=== PATIENT | female | born 1990 | race African-American/Black ===

== ENCOUNTER 2017-12-31 18:29 | Emergency (ER) | payer MEDICAID, OTHER ==
[~2017-12-31] VITALS: Ht 154.9 cm; Wt 48.1 kg
[~2017-12-31 18:29] MED LIST: ACETAMINOPHEN-1 EAC1 ORAL; AUGMENTIN 500M500 MG PO; CLARITIN5 MG ORAL; IBUPROFEN600 MG ORAL; IBUPROFEN600 MG PO; NKM; PROAIR HFA8.5 GM INH; ROBITUSSIN COU118 M4 PO
--- NOTE | 2017-12-31 18:51 | Emergency Room Report ---
History of Present Illness General Chief Complaint: Animal Bite Source: Patient, Medical Record Present Illness HPI 27-year-old female patient presents ER complaining of dog bite on left arm that occurred less than an hour ago. Patient reports that she was at [employer] getting her car when the dog that is the "property of the auto shop" bit her on her left arm. patient reports that process owner said the dog had all his shots "years ago". Reports she is right-hand dominant. Denies radiation of pain symptoms. reports puncture wound on top of left arm with mild bleeding, states bleeding well controlled with gauze. patient states Does not know tetanus vaccination status. Denies fever, chest pain, shortness of breath. Denies loss of range of motion of the arm. Denies foreign body sensation. Allergies: Coded Allergies: No Known Allergies (Unverified , 12/02/11) Patient History Past Medical History: see triage record Last Menstrual Period: 12/26/17 Reviewed Nursing Documentation: PMH: Agreed; PSxH: Agreed Nursing Documentation-PMH Past Medical History: No History, Except For Hx Asthma: Yes Review of Systems All Other Systems: negative except mentioned in HPI Physical Exam Vital Signs Date Time Temp Pulse Resp B/P (MAP) Pulse Ox O2 Delivery O2 Flow Rate FiO2 12/31/17 18:32 97.7 81 18 124/79 100 Room Air Sp02 EP Interpretation: reviewed, normal General Appearance: well appearing, no apparent distress, alert, GCS 15, non- toxic Head: normocephalic, atraumatic Eyes: bilateral eye normal inspection, bilateral eye PERRL ENT: hearing grossly normal, normal pharynx, no angioedema, normal voice, uvula midline, moist mucus membranes Neck: full range of motion Respiratory: lungs clear, normal breath sounds, no rhonchi, no respiratory distress, no accessory muscle use, no wheezing, speaking full sentences Cardiovascular #1: regular rate, rhythm, no edema Cardiovascular #2: 2+ radial (R), 2+ radial (L) Musculoskeletal: back normal, digits/nails normal, gait/station normal, normal range of motion, non-tender, other - NVI, cap refill <2seconds, no deformity Neurologic: alert, oriented x3, responsive, motor strength/tone normal, sensory intact Psychiatric: mood/affect normal Skin: other - left forearm: small bite with open wound, no active bleeding or drainage, no surrounding erythema or edema, no red streaking Medical Decision Making PA Attestation Dr. Mcgill is my supervising Physician whom patient management has been discussed with. Diagnostic Impression: Primary Impression: Bite by animal ER Course Pt presents to ED c/o dog bite. DDX considered but are not limited to animal bite, abrasion, cellulitis, contusion, fracture. VITALS Patient is afebrile ED COURSE: patient with pain medication. Full ROM of arm, no FB sensation, low suspicion for fracture or retained foreign body, does not require xray of arm at this time. Superficial wounds on right forearm, no active bleeding or draining. Wound clean with copious amount of saline and dressed in sterile dressing. TDap provided to patient. Rx provided for Augmentin. Patient instructed to follow up with PCP for wound check in 2-3 days and complete full course of antibiotics. ER precautions given. DISCHARGE: Rx provided for Augmentin Rx provided for Tylenol Apply topical Neosporin as needed. Available [id number]. At this time pt is stable for d/c to home. Patient resting comfortably no acute distress, nontoxic appearing, okay for outpatient treatment and follow-up. Will provide with patient care instructions and any necessary prescriptions. Patient to take medication as instructed. Care plan and follow-up instructions provided. Patient questions asked and answered. Followup with PCP or return to ER in 2-3 days for wound check. ER precautions given. Patient instructed to return to ER immediately for any new or worsening of symptoms. - Please note that this Emergency Department Report was dictated using [employer] harbormaster technology software, occasionally this can lead to erroneous entry secondary to interpretation by the dictation equipment. Last Vital Signs Date Time Temp Pulse Resp B/P (MAP) Pulse Ox O2 Delivery O2 Flow Rate FiO2 12/31/17 18:32 97.7 81 18 124/79 100 Room Air Status: improved Disposition: HOME, SELF-CARE Condition: Stable Scripts Acetaminophen* (TYLENOL EXTRA STRENGTH*) 500 Mg Tablet 500 MG ORAL Q8H PRN for Prn Headache/Temp > 101, #30 TAB 0 Refills Prov: Carl Grey P.Isabell 12/31/17 Amoxicillin/Potassium Clav 875-125* (AUGMENTIN 875-125 TABLET*) 1 Each Tablet 1 TAB ORAL TWICE A DAY for 7 Days, #14 TAB Prov: Carl Grey 12/31/17 Patient Instructions: Animal Bite Additional Instructions: Followup with primary care provider in 3 -5 days. Keep clean and dry. Apply cool compresses to effected area. Take medications as directed. Patient questions asked and answered. ER precautions given, patient instructed to return to ER immediately for any new or worsening of symptoms. Carl Grey Dec 31, 2017 18:51
[2017-12-31] MEDS ORDERED: Bacitracin Oint UD TOPIC ONE (19:00)
[2017-12-31] MEDS ORDERED: Acetaminophen 500mg (ES) tab ORAL ONE (19:00)
[2017-12-31] MEDS ORDERED: Tetanus/Diptheria/Pertussis Vaccine 0.5ml Syr IM ONE (19:00)
[2017-12-31] MEDS ORDERED: AUGMENTIN 875-1 EAC1 ORAL (19:09)
[2017-12-31] MEDS ORDERED: TYLENOL EXTRA500 MG ORAL (19:09)
[2018-01-01 00:17] VITALS: BP 124/79
== END 2018-01-01 00:19 | disposition home or self-care (01) ==
LOC: EMR 19:04
DX: S51.852A Open bite of left forearm, initial encounter (principal); W54.0XXA Bitten by dog, initial encounter; Y92.513 Shop (commercial) as the place of occurrence of the external cause; Z23 Encounter for immunization; J45.909 Unspecified asthma, uncomplicated
CPT/HCPCS: 90471; 90715; 99283

== ENCOUNTER 2019-04-23 20:07 | Emergency (ER) | payer MEDICAID ==
[~2019-04-23] VITALS: Ht 154.9 cm; Wt 46.7 kg
[~2019-04-23 20:07] MED LIST changes: +AUGMENTIN 875-1 EAC1 ORAL; +TYLENOL EXTRA500 MG ORAL
[2019-04-23 20:28] VITALS: BP 139/84
--- NOTE | 2019-04-23 20:29 | NUR ---
ER Nurse Note: Pt walked in c/o body aches, coughs, fever and chills for a few days. Pt stated she has been near family members who are sick. Pt stated nasal congestion with mucus. Pt denies chest pain; has slight shortness of breath due to congestion. ER PA at pt side. Will continue to [facility].
--- NOTE | 2019-04-23 20:38 | Emergency Room Report ---
History of Present Illness General Chief Complaint: Upper Respiratory Illness Source: Patient Present Illness HPI 28-year-old female presents to the emergency department complaining of persistent mucus-like cough, 6/10 body aches, subjective fevers/chills and fatigue x5 days. Patient with history of asthma in addition to being a current daily smoker. She denies recent travel. She reports her sister came from [place] who had similar symptoms first. She denies taking any medications today. Denies sore throat, ear pain, high fevers, neck pain/stiffness, irritability, photophobia dehydration, N/V/D. Denies Cp, Palpitations, LOC, AMS, seizures, paresthesias, or changes in Hearing or vision, no Sudden severe LYMAN. She did not receive this years flu vaccination. Allergies: Coded Allergies: No Known Allergies (Unverified , 12/02/11) Patient History Past Medical History: see triage record Past Surgical History: none Pertinent Family History: none Last Menstrual Period: 04/23/19 Now: No Reviewed Nursing Documentation: PMH: Agreed; PSxH: Agreed Nursing Documentation-PMH Past Medical History: No History, Except For Hx Asthma: Yes Review of Systems All Other Systems: negative except mentioned in HPI Physical Exam Vital Signs Date Time Temp Pulse Resp B/P (MAP) Pulse Ox O2 Delivery O2 Flow Rate FiO2 04/23/19 20:20 98.2 62 14 139/84 (102) 100 Room Air Sp02 EP Interpretation: reviewed, normal General Appearance: no apparent distress, alert, GCS 15, non-toxic Head: normocephalic, atraumatic Eyes: bilateral eye normal inspection, bilateral eye PERRL ENT: hearing grossly normal, normal pharynx, normal voice, TMs + canals normal , uvula midline Neck: full range of motion, no meningismus, no bony tend Respiratory: chest non-tender, lungs clear, normal breath sounds, no rhonchi, no respiratory distress, speaking full sentences Cardiovascular #1: regular rate, rhythm, no edema Gastrointestinal: non tender, soft Musculoskeletal: normal range of motion, gait/station normal, non-tender Neurologic: alert, motor strength/tone normal, oriented x3, sensory intact, responsive, speech normal Psychiatric: judgement/insight normal Skin: no rash, normal color, normal inspection Lymphatic: no adenopathy Medical Decision Making PA Attestation Dr. Joe Is my supervising Physician whom patient management has been discussed with. Diagnostic Impression: Primary Impression: Bronchitis Additional Impression: Upper respiratory infection, viral ER Course 28-year-old female presents to the emergency department complaining of persistent mucus-like cough, 6/10 body aches, subjective fevers/chills and fatigue x5 days. Patient with history of asthma in addition to being a current daily smoker. She denies recent travel. She reports her sister came from [place] who had similar symptoms first. She denies taking any medications today. Denies sore throat, ear pain, high fevers, neck pain/stiffness, irritability, photophobia dehydration, N/V/D. Denies Cp, Palpitations, LOC, AMS, seizures, paresthesias, or changes in Hearing or vision, no Sudden severe LYMAN. She did not receive this years flu vaccination. Ddx considered but are not limited to URI, pneumonia, PE, strep pharyngitis, meningitis, bronchitis, asthma exacerbation, PND just to name a few.. Vital signs: Pt.is afebrile VS are WNL H&PE are most consistent with bronchitis most likely viral in etiology. ORDERS: none required at this time, the diagnosis is clinical ED INTERVENTIONS: None required at this time. -I do not identify an emergent condition at this time. With current presentation , pt. is stable for close outpatient follow up and conservative treatment. D/ w pt. to return promptly to ED with worsening or new symptoms.- Pt. verbalizes' understanding and agreement with proposed treatment plan. DISCHARGE: At this time pt. is stable for d/c to home. Will provide printed patient care instructions, and any necessary prescriptions. Care plan and follow up instructions have been discussed with the patient prior to discharge. Last Vital Signs Date Time Temp Pulse Resp B/P (MAP) Pulse Ox O2 Delivery O2 Flow Rate FiO2 04/23/19 20:28 62 14 Room Air 04/23/19 20:28 98.2 139/84 100 Disposition: HOME, SELF-CARE Condition: Stable Scripts No Active Prescriptions or Reported Meds Patient Instructions: Acute Bronchitis, [id number], Upper Respiratory Infection, Adult Additional Instructions: Limit smoking as much as possible while symptomatic. Take medications as directed. Follow up with a Primary Care Provider in 3-5 days, even if your symptoms have resolved. Return sooner to ED if new symptoms occur, or current symptoms become worse. - Please note that this Emergency Department Report was dictated using [employer] nurse practitioner technology software, occasionally this can lead to erroneous entry secondary to interpretation by the dictation equipment. Myla Adam Apr 23, 2019 20:38
[2019-04-23] MEDS ORDERED: ALBUTEROL SULF8.5 GM INH (20:40)
[2019-04-23] MEDS ORDERED: PROMETHAZINE-D118 ML ORAL (20:40)
[2019-04-23] MEDS ORDERED: GUAIFENESIN400 MG PO (20:40)
[2019-04-23 20:45] VITALS: BP 139/84
--- NOTE | 2019-04-23 20:45 | NUR ---
ED Nurse Note: All orders completed per ER PA orders. Pt cleared by health care Provider for discharge. DC instructions/prescription was given and explained to pt and verbalized understanding of teachings. Instructed pt to follow up with primary care physican within one week. All medical deviecs such as ID band removed. Pt is AAO x4, ambulatory and left with all personal belongings.
== END 2019-04-23 20:50 | disposition home or self-care (01) ==
LOC: EMR 20:48
DX: J40 Bronchitis, not specified as acute or chronic (principal); J06.9 Acute upper respiratory infection, unspecified
CPT/HCPCS: 99281